=== PATIENT | male | born 1960 | race Caucasian/White ===

== ENCOUNTER → 2016-07-21 | Outpatient (CLI) | payer BC ==
[~2016-07-21] MED LIST: ATOR20TA59 PO; CHOL200024; CYAN500T2 PO; FERR324T4 PO; LOSA1TAB56 PO; OMEP40CA52 PO; RANI150T12 PO; RIVA15TA PO; RIVA20TA PO; SUCR1ORA PO
--- NOTE | 2016-07-21 10:23 | DI ---
Indication: ITS.REASON: N28.1 Cyst of kidney, acquired PROCEDURE: US RENAL: Encounter: Initial Comparison: CT chest, abdomen and pelvis dated February 18, 2016 Technique: Grayscale and color Doppler sonographic imaging of both kidneys and bladder was performed. FINDINGS: Both kidneys are present with changes of polycystic kidney disease. Multiple large cysts are seen in both kidneys. There is a 6.7 x 4.4 x 4.6 cm cyst in the right kidney which shows a slightly thickened septation with calcification. The remaining cysts appear simple on the right. The largest cyst measures 7.2 cm in diameter. Left kidney shows multiple simple appearing cysts and also contains a cyst with a thin internal septation and calcification. This measures 5.4 x 4.9 x 5.9 cm. No solid components seen. No internal Doppler flow within the cysts. No hydronephrosis. Right kidney measures 14.4 cm in length. Left kidney measures 13.7 cm in length. Bladder appears sonographically normal with bilateral ureteral jets present. Moderately enlarged prostate gland. IMPRESSION: Bilateral renal cysts with a mildly complex cyst on both kidneys containing septation and internal calcification. No solid component or findings concerning for renal carcinoma currently. .
== END ==
LOC: IMA 09:25
PROVIDERS: ATTEND Urology
DX: N28.1 Cyst of kidney, acquired (principal)